=== PATIENT | male | born 1950 | race Caucasian/White ===

== ENCOUNTER 2023-04-13 20:36 | Emergency (ER) | payer MEDICARE ==
[~2023-04-13] VITALS: Ht 180.3 cm; Wt 78.0 kg
[2023-04-13 20:49] VITALS: BP 124/79; O2SAT 98
[2023-04-14] MEDS ORDERED: CEPH500C2 MT (00:50)
[2023-04-14 00:59] VITALS: PULSE 99; RESP 17; TEMP 97.6
== END 2023-04-14 01:00 | disposition home or self-care (01) ==
LOC: ER 23:40
DX: R33.9 Retention of urine, unspecified (principal); Z98.890 Other specified postprocedural states
CPT/HCPCS: 36415; 80048; 99283; A4315

== ENCOUNTER 2023-04-21 23:39 | Emergency (ER) | payer MEDICARE, OTHER ==
[~2023-04-21] VITALS: Ht 180.3 cm; Wt 78.0 kg
[~2023-04-21 23:39] MED LIST: CEPH500C2 MT
[2023-04-21 23:53] VITALS: O2SAT 99
[2023-04-22 00:36] LABS: BASOPHILS % 0.2 % (0.0-2.0); EOSINOPHILS % 1.3 % (0.0-5.0); HEMATOCRIT. 39.2 % (42.0-52.0); HEMOGLOBIN. 13.3 g/dL (14.0-18.0); LYMPHOCYTES % 9.4 % (20.0-50.0); MEAN CORPUSCULAR HEMOGLOBIN 30.8 pg (28.0-32.0); MEAN PLATELET VOLUME 7.2 fl (7.4-10.4); MONOCYTES % 8.1 % (2.0-8.0); PLATELET 269 x1000/uL (130-400); RED BLOOD CELL COUNT 4.31 mill/uL (4.7-6.1); RED CELL DISTRIBUTION WIDTH 13.1 % (11.6-14.6)
[2023-04-22 00:47] LABS: CHLORIDE 98 mEq/L (98-107)
[2023-04-22] MEDS ORDERED: MAGNESIUM/ALUMINUM HYDROXIDE/SIMETHICONE 30ML UDC PO STA (04:06)
[2023-04-22] MEDS ORDERED: ONDANSETRON HCL 4MG/2ML INJ IV STA (04:06)
[2023-04-22] MEDS ORDERED: DICYCLOMINE 10 MG/5 ML ORAL SYR PO STA (04:06)
[2023-04-22] MEDS ORDERED: SODIUM CHLORIDE 0.9% 1,000 ML IV ONE (04:15)
[2023-04-22 05:15] VITALS: BP 117/65; PULSE 95; RESP 16; TEMP 98.3
[2023-04-22] MEDS ORDERED: ONDA4TAB11 PO (05:52)
== END 2023-04-22 06:45 | disposition home or self-care (01) ==
LOC: ER 23:39
DX: K52.9 Noninfective gastroenteritis and colitis, unspecified (principal); Z98.890 Other specified postprocedural states
CPT/HCPCS: 99285; 96374; 71045; 96361; 80053; 83690; 85025; 84484; 36415; 93005; J2405; J7030